=== PATIENT | male | born 1985 | race Caucasian/White ===

== ENCOUNTER 2018-10-26 02:45 | Observation (INO) ==
[2018-10-26 03:32] LABS: Baso # (Auto) 0.2 th/mm3 (0.0-0.2); Baso % (Auto) 1.2 % (0.0-2.0); Eos # (Auto) 0.5 th/mm3 (0.0-0.4); Hematocrit 45.2 % (39.0-51.0); Hemoglobin 15.9 gm/dL (13.0-17.0); Lymph # (Auto) 4.2 th/mm3 (1.0-4.8); Lymph % (Auto) 32.2 % (9.0-44.0); Mean Corpuscular HGB Conc 35.2 % (32.0-36.0); Mean Corpuscular Volume 85.2 fL (80.0-100.0); Mean Platelet Volume 7.2 fL (7.0-11.0); Mono % (Auto) 7.3 % (0.0-8.0); Neut # (Auto) 7.2 th/mm3 (1.8-7.7); Neut % (Auto) 55.3 % (16.0-70.0); Platelet Count 267 th/mm3 (150-450); Red Cell Distribution Width 14.3 % (11.6-17.2)
[2018-10-26 03:43] LABS: Activated Partial Thrombo Time 26.6 sec (23.4-31.7); Prothrombin Time 10.6 sec (9.8-11.6)
[2018-10-26 03:44] LABS: D-Dimer 0.49 mg/L FEU (0.00-0.50)
[2018-10-26 03:48] LABS: Alanine Aminotransferase 78 U/L (12-78); Albumin 3.7 g/dL (3.4-5.0); Anion Gap 8 meq/L (5-15); Aspartate Aminotransferase 38 U/L (15-37); Blood Urea Nitrogen 16 mg/dL (7-18); Calcium 8.5 mg/dL (8.5-10.1); Carbon Dioxide 29.2 meq/L (21.0-32.0); Chloride 102 meq/L (98-107); Glomerular Filtration Rate 81 mL/min (>89); Glucose,Random 104 mg/dL (74-106); Lipase 179 U/L (73-393); Magnesium 2.1 mg/dL (1.5-2.5); Potassium 3.6 meq/L (3.5-5.1); Sodium 139 meq/L (136-145)
[2018-10-26 03:50] LABS: Alkaline Phosphatase 84 U/L (45-117); Creatine Kinase 107 U/L (39-308); Total Protein 8.2 g/dL (6.4-8.2)
--- NOTE | 2018-10-26 03:56 | XR ---
EXAM DATE: 10/26/2018 3:31 AM EST AGE/SEX: 33 years / Male INDICATIONS: Chest pain. CLINICAL DATA: This is the patient's initial encounter. Patient reports that signs and symptoms have been present for 3 days and indicates a pain score of 10/10. MEDICAL/SURGICAL HISTORY: None. None. COMPARISON: [facility]PO, CHEST 1V SINGLE AP, 06/24/2018. . FINDINGS: A single AP view of the chest demonstrates the lungs to be symmetrically aerated without evidence of mass, infiltrate or effusion. The cardiomediastinal contours are unremarkable. Osseous structures a re intact. CONCLUSION: No acute cardiopulmonary disease demonstrated. Electronically signed by: Pramod Mata MD Board Certified Radiologist 10/26/2018 3:54 AM EST
--- NOTE | 2018-10-26 05:16 | ED ---
HPI General Chief complaint: Chest Pain Stated complaint: Chest pains Time Seen by Provider: 10/26/18 03:04 Source: patient History of Present Illness HPI narrative: The patient is a 33 year old male who presents to the [facility] emergency department with a history of central chest pain that he reports began 3 days ago. He reports that it is sharp in character and comes and goes. He reports that it takes his breath away. He reports that it radiates into the left shoulder. The patient has a history of IV drug use, however he has not used for the last week. He reports that he injects Dilaudid. He denies having any prior history of endocarditis or hepatitis C. He reports that he has had a recent cough that is dry in character. He denies having any fevers or chills. He denies having any diaphoresis associated with this. He denies having any prior history of coronary artery disease. He denies ever having a stress test previously. He reports having family history of heart disease in his dad and grandparents. He denies having any lower extremity edema, calf pain, or erythema. He denies having any prior history of DVT or PE. On review of systems otherwise, the patient denies having neck pain , abdominal pain, vomiting, diarrhea, urinary symptoms, or neurologic symptoms. Related Data Home Medications Medication Instructions Recorded Confirmed No Known Home Medications 10/26/18 10/26/18 Allergies Allergy/AdvReac Type Severity Reaction Status Date / Time No Known Allergies Allergy Verified 09/15/18 21:30 Review of Systems ROS: all other systems reviewed are negative PMFSH Medical History Medical History IVDU (intravenous drug user) (Acute) Surgical History Surgical History H/O elbow surgery (Acute) Social History Social History Substance History: Active Abuse Second Hand Smoke Exposure: Yes Smoking Status: Current every day smoker Tobacco Type: Cigarettes Packs Per Day: 0.5 Cigarettes Per Day: 10.0 How Often Do You Have a Drink Containing Alcohol: Monthly or less Recent Travel in [facility] within the Last 8 Weeks: No Recent Out of Country Travel within the Last 8 Weeks: No Immunization History Tetanus Immunization: Unsure Exam Const General: cooperative, no acute distress and well developed Nutritional Appearance: well nourished Orientation: alert, awake and oriented x3 HENMT Head: normocephalic and atraumatic Nose: no nasal discharge and no epistaxis Mouth: moist mucous membranes Throat: posterior oropharynx normal and uvula midline Eyes Sclera: normal sclerae Pupils: PERRL Neck Neck: no meningeal signs, trachea midline and no JVD Chest Chest: normal inspection of the chest and no tenderness Resp Effort & Inspection: no use of accessory muscles Auscultation: clear to auscultation bilaterally Cardio Rate: tachycardic (Sinus tachycardia in the low 100s, no pulse deficits to the extremities on simultaneous auscultation and palpation of his radial artery) Rhythm: regular rhythm Heart Sounds: no gallops, no murmurs and no rubs GI Inspection: non-distended Palpation: soft, no hepatosplenomegaly, no guarding, not rigid and nontender Auscultation: normal bowel sounds Back/Spine/Pelvis Back: no CVA tenderness Skin General: dry skin (warm) Neuro General: alert, awake, oriented x3 and other (Grossly nonfocal.) Speech: speech normal Motor: no movement abnormalities noted Extrem General: normal to inspection (2+ pulses in all 4 extremities), no calf tenderness, no clubbing, no cyanosis and no edema Psych Mood: congruent mood Affect: normal affect Judgment: judgment good Course Initial Documented Vital Signs Temperature 97.7 F 10/26/18 02:50 Pulse Rate 113 H 10/26/18 02:50 Respiratory Rate 18 10/26/18 02:50 Blood Pressure 123/74 10/26/18 02:50 Pulse Oximetry 95 10/26/18 02:50 Last Documented Vital Signs Temperature 97.7 F 10/26/18 02:50 Pulse Rate 113 H 10/26/18 02:50 Respiratory Rate 20 10/26/18 03:02 Blood Pressure 123/74 10/26/18 02:50 Pulse Oximetry 95 10/26/18 02:50 Medical Decision Making MDM Narrative Medical decision making narrative: During the course of the patient's emergency department visit, the patient's history, examination, and differential diagnosis were reviewed with the patient. The patient was placed on a conveyor monitor with oximetry and frequent blood pressure monitoring. The patient had IV access obtained and blood work sent for analysis. A diagnostic evaluation was started regarding the patient's chest pain. The patient was initially provided aspirin 324 mg p.o. x1, nitroglycerin 1 inch to the chest wall, normal saline at 500 mL bolus x1. The patient's diagnostic studies are remarkable for a white count of 13, hemoglobin is 15.9, platelets 267, differential within normal limits, sedimentation rate is not elevated and noted to be 5, PT PTT within normal limits, d-dimer 0.49 decreasing the likelihood of pulmonary embolism in this patient with no other significant risk factors. Chemistries remarkable for a GFR of 81, AST 38, cardiac enzymes within normal limits, C-reactive protein 1.40 , BNP is 2, lipase within normal limits. Chest x-ray shows no acute cardiopulmonary disease. The patient's case was discussed with Dr. Augustin, the hospitalist teacher of the emotionally disturbed regarding possible admission to the hospitalist service due to the differential diagnosis also being the patient's history of IV drug use and endocarditis being in the differential. As the patient's sedimentation rate is negative for inflammation, she agrees that the patient could be admitted to the chest pain And the other markers are not suggestive of endocarditis, she recommends that the patient be admitted to the chest pain center for rule out serial cardiac enzyme protocol followed by stress testing given his family history of heart disease. The patient's results were discussed with the patient, including the plan of care. I explained that further testing and/ or monitoring is indicated based on the patient's history, examination, and/ or laboratory findings. Therefore, I recommended admission for additional evaluation. The patient expressed understanding and was agreeable with this plan. The patient was admitted to the hospital in stable condition and sent to a bed under the care of the [facility]. Medical Screen Exam Complete: Yes Emergency Medical Condition: Yes Differential Diagnosis Differential Diagnosis: Coronary syndrome, versus pulmonary embolism, versus endocarditis, versus pneumothorax, versus pleurisy, versus pneumonia Medical Records Medical records reviewed: Yes I reviewed the patient's medical records. Lab Data Lab results reviewed: Yes I reviewed the patient's lab results. Result diagrams: 10/26/18 03:20 10/26/18 03:20 Lab Results 10/26/18 10/26/18 10/26/18 Range/Units 03:20 03:20 03:20 WBC 13.0 H (4.0-11.0) th/mm3 RBC 5.30 (4.50-5.90) mil/mm3 Hgb 15.9 (13.0-17.0) gm/dL Hct 45.2 (39.0-51.0) % MCV 85.2 (80.0-100.0) fL MCH 30.0 (27.0-34.0) pg MCHC 35.2 (32.0-36.0) % RDW 14.3 (11.6-17.2) % Plt Count 267 (150-450) th/mm3 MPV 7.2 (7.0-11.0) fL Neut % (Auto) 55.3 (16.0-70.0) % Lymph % (Auto) 32.2 (9.0-44.0) % [place] % (Auto) 7.3 (0.0-8.0) % Eos % (Auto) 4.0 (0.0-4.0) % Baso % (Auto) 1.2 (0.0-2.0) % Neut # (Auto) 7.2 (1.8-7.7) th/mm3 Lymph # (Auto) 4.2 (1.0-4.8) th/mm3 [place] # (Auto) 1.0 H (0.0-0.9) th/mm3 Eos # (Auto) 0.5 H (0.0-0.4) th/mm3 Baso # (Auto) 0.2 (0.0-0.2) th/mm3 WBC Differential . Differential Comment Auto diff final ESR (0-15) mm/hr PT 10.6 (9.8-11.6) sec INR 1.0 Ratio APTT 26.6 (23.4-31.7) sec D-Dimer Quant (PE/DVT) 0.49 (0.00-0.50) mg/L FEU Sodium 139 (136-145) meq/L Potassium 3.6 (3.5-5.1) meq/L Chloride 102 (98-107) meq/L Carbon Dioxide 29.2 (21.0-32.0) meq/L Anion Gap 8 (5-15) meq/L BUN 16 (7-18) mg/dL Creatinine 1.04 (0.60-1.30) mg/dL Estimated GFR 81 L (>89) mL/min Random Glucose 104 (74-106) mg/dL Calcium 8.5 (8.5-10.1) mg/dL Magnesium 2.1 (1.5-2.5) mg/dL Total Bilirubin 0.4 (0.2-1.0) mg/dL AST 38 H (15-37) U/L ALT 78 (12-78) U/L Alkaline Phosphatase 84 (45-117) U/L Total Creatine Kinase 107 (39-308) U/L CK-MB (CK-2) Less than 1.0 (0.5-3.6) ng/mL Troponin I Less than 0.02 L (0.02-0.05) ng/mL C-Reactive Protein 1.40 H (0.00-0.30) mg/dL B-Natriuretic Peptide (0-100) pg/mL Total Protein 8.2 (6.4-8.2) g/dL Albumin 3.7 (3.4-5.0) g/dL Lipase 179 (73-393) U/L 10/26/18 10/26/18 Range/Units 03:20 03:20 WBC (4.0-11.0) th/mm3 RBC (4.50-5.90) mil/mm3 Hgb (13.0-17.0) gm/dL Hct (39.0-51.0) % MCV (80.0-100.0) fL MCH (27.0-34.0) pg MCHC (32.0-36.0) % RDW (11.6-17.2) % Plt Count (150-450) th/mm3 MPV (7.0-11.0) fL Neut % (Auto) (16.0-70.0) % Lymph % (Auto) (9.0-44.0) % [place] % (Auto) (0.0-8.0) % Eos % (Auto) (0.0-4.0) % Baso % (Auto) (0.0-2.0) % Neut # (Auto) (1.8-7.7) th/mm3 Lymph # (Auto) (1.0-4.8) th/mm3 [place] # (Auto) (0.0-0.9) th/mm3 Eos # (Auto) (0.0-0.4) th/mm3 Baso # (Auto) (0.0-0.2) th/mm3 WBC Differential Differential Comment ESR 5 (0-15) mm/hr PT (9.8-11.6) sec INR Ratio APTT (23.4-31.7) sec D-Dimer Quant (PE/DVT) (0.00-0.50) mg/L FEU Sodium (136-145) meq/L Potassium (3.5-5.1) meq/L Chloride (98-107) meq/L Carbon Dioxide (21.0-32.0) meq/L Anion Gap (5-15) meq/L BUN (7-18) mg/dL Creatinine (0.60-1.30) mg/dL Estimated GFR (>89) mL/min Random Glucose (74-106) mg/dL Calcium (8.5-10.1) mg/dL Magnesium (1.5-2.5) mg/dL Total Bilirubin (0.2-1.0) mg/dL AST (15-37) U/L ALT (12-78) U/L Alkaline Phosphatase (45-117) U/L Total Creatine Kinase (39-308) U/L CK-MB (CK-2) (0.5-3.6) ng/mL Troponin I (0.02-0.05) ng/mL C-Reactive Protein (0.00-0.30) mg/dL B-Natriuretic Peptide Less than 2 (0-100) pg/mL Total Protein (6.4-8.2) g/dL Albumin (3.4-5.0) g/dL Lipase (73-393) U/L Imaging Data Radiologist's impression: Chest X-Ray 10/26/18 03:08 CONCLUSION: No acute cardiopulmonary disease demonstrated. ECG Data Attestation: I personally reviewed and interpreted this ECG as follows: Interpretation: An EKG done on arrival. The patient's EKG reveals a sinus rhythm heart rate of 95, QRS duration 96 ms, QTC [address] segment elevation. T waves are inverted in V1. Discharge Plan Discharge Disposition Patient Disposition: ED Admit(ED Internal Use Only) Discharge Order Discharge Orders: ED Use Only Admit Order (Routine); Ordered 10/26/18 Ordered By: Myriam Martinez Discharge Details Diagnosis: Chest pain, rule out acute myocardial infarction Physicians Team ED Provider: Myriam Martinez Primary Care Provider: Primary Care Physici,Maty Attending Provider: Beatris Martinez Discharge Interventions Interventions: Vital Signs Last Done: 10/26/18 03:02 Status ED Status: Admitted Observation Patient
[2018-10-26] MEDS ORDERED: Sodium Chlor 0.9% Inj 500 ML IV.SIG ONE (05:17)
[2018-10-26] MEDS ORDERED: Acetaminophen 500 MG Tablet PO PRN (06:16)
[2018-10-26 07:18] LABS: Creatine Kinase 87 U/L (39-308)
--- NOTE | 2018-10-26 08:12 | P.HPCA ---
History of Present Illness Primary Care Physician: No Primary Care Physician Chief Complaint: chest pain History of Present Illness: 33 year old male with history of IVDA presents to ER for further evaluation of chest pain. Upon initial conversation did not recall why he came to hospital. Girlfriend at bedside reports him complaining of chest pain 4 days. Location substernal. Characterized as sharp. Radiation to left shoulder. No associated symptoms of nausea, vomiting, dyspnea, or diaphoresis. Inspiration and coughing makes the discomfort worse. No precipitating or relieving factors. Denies recent fever, chills, cough, sputum production, or injury. Endorses last IV drug use of Dilaudid 1 week ago. No known hypertension, hyperlipidemia, or diabetes. Past cardiac testing None Social history No hypertension, hyperlipidemia, or diabetes. Current smoker 2 pack day smoker. IV drug use. Frequent alcohol. Works as a construction carpenter. Endorses light lifestyle. Family history Noncontributory for early onset cardiovascular disease. - Diagnosis (1) Atypical chest pain (2) Tobacco abuse Review of Systems All other systems reviewed negative except as stated in HPI PMFSH - History History Provided By: Patient - Medical History Medical History: Medical History (Last Reviewed 10/26/18 @ 12:03 by CHANDRIKA Rogers) IVDU (intravenous drug user) - Surgical History Surgical History: Surgical History (Last Reviewed 10/26/18 @ 12:03 by CHANDRIKA Rogers) H/O elbow surgery - Social History I have reviewed the patient's Social History: No - Tobacco History Second Hand Smoke Exposure: Yes Smoking Status: Current every day smoker Tobacco Type: Cigarettes Packs Per Day: 0.5 Cigarettes Per Day: 10.0 - Alcohol History How Often Do You Have a Drink Containing Alcohol: Monthly or less - Substance Use History Substance History: Active Abuse - Travel History Recent Travel in the [place] Within the Last 8 Weeks: No Recent Travel Out of the Country Within the Last 8 Weeks: No - Immunization History Tetanus Immunization: Unsure Medications and Allergies Active Medications: Active Medications Acetaminophen (Tylenol) 500 mg PO Q4H PRN PRN Reason: HEADACHE Sodium Chloride (Ns Flush) 2 ml IV.FLUSH UNSCH PRN PRN Reason: FLUSH AFTER USING IV ACCESS Sodium Chloride (Ns Flush) 2 ml IV.FLUSH BID JAYLEN Sodium Chloride (Ns Flush) 2 ml IV.FLUSH PRN PRN PRN Reason: FLUSH AFTER USING IV ACCESS Allergies Allergy/AdvReac Type Severity Reaction Status Date / Time No Known Allergies Allergy Verified 09/15/18 21:30 Home Medications Medication Instructions Recorded Confirmed Type No Known Home Medications 10/26/18 10/26/18 History Exam Vital signs: Vital Signs 10/26/18 02:50 10/26/18 03:02 10/26/18 06:47 Temperature 97.7 F Pulse Rate 113 H 82 Respiratory Rate 18 20 15 Blood Pressure 123/74 122/65 Pulse Oximetry 95 96 Intake & Output 10/25/18 10/26/18 10/26/18 18:59 06:59 18:59 Intake Total 500 / 500 Balance 500 / 500 Weight 81.647 kg Intake: IV 500 / 500 NS Inj 500 ML @ Wide Open IV. 500 / 500 SIG BOLUS ONE Rx#:[id number] Narrative: GENERAL: Alert WN, WD, NAD, male, appears older than stated age, awakens from sleep after much HEAD: NC, AT EYES: Sclera clear, conjunctiva without injection, pupils equal and round ENT: Mucous membranes pink and moist CV: RRR, without murmur, rub, gallop, no JVD RESP: Clear lungs throughout bilateral, no crackles, wheeze, rhonchi, symmetrical chest rise, nonlabored, able to speak in full sentences ABD: Soft, NT, ND, no masses, positive bowel tones EXT: Pulses +2x4, no dependent edema MS: Normal tone x4 extremities, nontender, no obvious deformities, full range of motion NEURO: Motor strength 5/5 PSYCH: A+O x3, flat affect, appropriate speech, questionable insight and judgment SKIN: Normal turgor, normal texture, no lesions, no rashes, brisk cap refill, even hair distribution, heavily tattooed Results 10/26/18 03:20 10/26/18 03:20 Cardiac Enzymes 10/26/18 10/26/18 10/26/18 Range/Units 03:20 03:20 06:25 AST 38 H (15-37) U/L CK-MB (CK-2) Less than 1.0 (0.5-3.6) ng/mL Troponin I Less than 0.02 L Less than 0.02 L (0.02-0.05) ng/mL B-Natriuretic Peptide Less than 2 (0-100) pg/mL Coagulation 10/26/18 10/26/18 Range/Units 03:20 03:20 PT 10.6 (9.8-11.6) sec APTT 26.6 (23.4-31.7) sec B-Natriuretic Peptide Less than 2 (0-100) pg/mL CBC 10/26/18 Range/Units 03:20 WBC 13.0 H (4.0-11.0) th/mm3 RBC 5.30 (4.50-5.90) mil/mm3 Hgb 15.9 (13.0-17.0) gm/dL Hct 45.2 (39.0-51.0) % Plt Count 267 (150-450) th/mm3 Neut # (Auto) 7.2 (1.8-7.7) th/mm3 Lymph # (Auto) 4.2 (1.0-4.8) th/mm3 [place] # (Auto) 1.0 H (0.0-0.9) th/mm3 Eos # (Auto) 0.5 H (0.0-0.4) th/mm3 Baso # (Auto) 0.2 (0.0-0.2) th/mm3 Comprehensive Metabolic Panel 10/26/18 Range/Units 03:20 Sodium 139 (136-145) meq/L Potassium 3.6 (3.5-5.1) meq/L Chloride 102 (98-107) meq/L Carbon Dioxide 29.2 (21.0-32.0) meq/L BUN 16 (7-18) mg/dL Creatinine 1.04 (0.60-1.30) mg/dL Calcium 8.5 (8.5-10.1) mg/dL AST 38 H (15-37) U/L ALT 78 (12-78) U/L Alkaline Phosphatase 84 (45-117) U/L Total Protein 8.2 (6.4-8.2) g/dL Albumin 3.7 (3.4-5.0) g/dL Intake and Output 10/25/18 10/26/18 10/26/18 22:59 06:59 14:59 Intake Total 500 / 500 Balance 500 / 500 Intake: IV 500 / 500 NS Inj 500 ML @ Wide Open IV. 500 / 500 SIG BOLUS ONE Rx#:[id number] Other: Weight 81.647 kg - Imaging and Cardiology Imaging: Impressions Chest X-Ray 10/26/18 03:08 CONCLUSION: No acute cardiopulmonary disease demonstrated. EKG interpretations - EKG EKG results cardiology: sinus rhythm, normal axis, normal QRS, normal ST/T Caprini VTE Risk Assessment Caprini VTE Risk Assessment: No/Low Risk (score <= 1) Caprini Risk Assessment Model: Point Value = 1 Point Value = 2 Point Value = 3 Point Value = 5 Age 41-60 Minor surgery BMI > 25 kg/m2 Swollen legs Varicose veins or History of unexplained or recurrent spontaneous Oral contraceptives or hormone replacement Sepsis (< 1 month) Serious lung disease, including pneumonia (< 1 month) Abnormal pulmonary function Acute myocardial infarction Congestive heart failure (< 1 month) History of inflammatory bowel disease Medical patient at bed rest Age 61-74 Arthroscopic surgery Major open surgery (> 45 min) Laparoscopic surgery (> 45 min) Malignancy Confined to bed (> 72 hours) Immobilizing plaster cast Central venous access Age >= 75 History of VTE Family history of VTE Factor V Leiden Prothrombin [id number] Lupus anticoagulant Anticardiolipin antibodies Elevated serum homocysteine Heparin-induced thrombocytopenia Other congenital or acquired thrombophilia Stroke (< 1 month) Elective arthroplasty Hip, pelvis, or leg fracture Acute spinal cord injury (< 1 month) Prophylaxis Regimen: Total Risk Factor Score Risk Level Prophylaxis Regimen 0-1 Low Early ambulation 2 Moderate Order ONE of the following: *Sequential Compression Device (SCD) *Heparin 5000 units SQ BID 3-4 Higher Order ONE of the following medications: *Heparin 5000 units SQ TID *Enoxaparin/Lovenox 40 mg SQ daily (WT < 150 kg, CrCl > 30 mL/min) *Enoxaparin/Lovenox 30 mg SQ daily (WT < 150 kg, CrCl > 10-29 mL/min) *Enoxaparin/Lovenox 30 mg SQ BID (WT < 150 kg, CrCl > 30 mL/min) AND/OR *Sequential Compression Device (SCD) 5 or more Highest Order ONE of the following medications: *Heparin 5000 units SQ TID (Preferred with Epidurals) *Enoxaparin/Lovenox 40 mg SQ daily (WT < 150 kg, CrCl > 30 mL/min) *Enoxaparin/Lovenox 30 mg SQ daily (WT < 150 kg, CrCl > 10-29 mL/min) *Enoxaparin/Lovenox 30 mg SQ BID (WT < 150 kg, CrCl > 30 mL/min) AND *Sequential Compression Device (SCD) Assessment and Plan - Assessment (1) Atypical chest pain Code(s): R07.89 - Other chest pain Status: Acute Plan: Admitted chest pain center. Ruled out with 2 sets of EKGs and cardiac enzymes. Seen and evaluated by Dr. Beatris Martinez. Proceed with exercise cardiac testing. If unremarkable, plan is to discharge home with follow-up primary care provider. Encouraged establishing with a primary care provider and stopping IV drug use. (2) Tobacco abuse Code(s): Z72.0 - Tobacco use Status: Chronic Plan: Strongly encouraged and stressed importance of tobacco cessation. Instructed to quit smoking. Information regarding tobacco free [place] program will be provided upon discharge.
--- NOTE | 2018-10-26 16:46 | ECG ---
Date Performed: 10/26/2018 Time Performed: 03:31:18 PTAGE: 33 years EKG: Sinus rhythm NORMAL ECG Since PREVIOUS TRACING , no significant change noted PREVIOUS TRACIN06/24/2018 10.17 DOCTOR: Beatris Martinez Interpretating Date/Time 10/26/2018 16:44:49
--- NOTE | 2018-10-26 16:47 | ECG ---
Date Performed: 10/26/2018 Time Performed: 06:26:30 PTAGE: 33 years EKG: Sinus rhythm NORMAL ECG Since PREVIOUS TRACING , no significant change noted PREVIOUS TRACIN10/26/2018 03.31 DOCTOR: Beatris Martinez Interpretating Date/Time 10/26/2018 16:45:37
--- NOTE | 2018-10-26 16:56 | TR ---
Date Performed: 10/26/2018 Time Performed: 12:02:37 DOCTOR: Beatris Martinez DRUG LIST: CLINICAL HISTORY: REASON FOR TEST: REASON FOR ENDING: OBSERVATION: CONCLUSION: Modified Daniel protocol completed. Modiified in stage 3, increasing speed to 4.2 mil es/ hour jogging last 1:30 minutes. Stopped sec to exceeding target heart rate and leg fatigue. Maxim um NG=676 Max HR Achieved=99.0% Total Exercise Time=9:46 Max bp 130/72. Great exercise response. No s t t segment changes. Normal bp response. Rare PVC. Recovery quick and unremarkable. COMMENTS: No ischemia
== END 2018-10-26 14:38 | disposition home or self-care (01) ==
LOC: NEPC 02:45 → NEDA 02:45 → NEPGCP 07:24
PROVIDERS: ADMIT Internal Medicine Interventional Cardiology; ATTEND Internal Medicine Interventional Cardiology
CPT/HCPCS: 71010; 71045; 80053; 82550; 82552; 83520; 83690; 83735; 83880; 84484; 85025; 85379; 85610; 85651; 85652; 85730; 86140; 87040; 87205; 93005; 93017; 96360; 96361; 99285; G0378; J7040